=== PATIENT | female | born 1955 | race Hispanic/Latino ===

== ENCOUNTER → 2018-10-24 | Outpatient (REF) ==
[~2018-10-24] MED LIST: EFFEXOR XR150 MG PO; MIRTAZAPINE15 M1 PO; OXYBUTYNIN5 M1 PO; SIMVASTATIN40 MG PO
== END | disposition home or self-care (01) | DRG 642 ==
LOC: LAB 08:08
PROVIDERS: ATTEND Nurse Practitioner Family
DX: E78.5 Hyperlipidemia, unspecified (principal); Z11.4 Encounter for screening for human immunodeficiency virus [HIV]

== ENCOUNTER 2022-02-01 08:25 | Day surgery (SDC) | payer MEDICARE, MEDICAID ==
[~2022-02-01] VITALS: Ht 156.2 cm; Wt 58.1 kg
[~2022-02-01 08:25] MED LIST changes: +BREO ELLIPTA 101 INH; +CVS OMEPRAZOLE20 M1; +FENOFIBRATE145 MG PO; +MONTELUKAST SOD10 MG PO; +PRAVASTATIN SOD20 MG PO; +PROAIR HFA108 MCG/AC; +REMERON SOLTAB15 MG
[2022-02-01 10:25] VITALS: BP 113/56
== END 2022-02-01 10:46 | disposition home or self-care (01) ==
LOC: ENDO 08:25 → ORM 09:20 → ENDO 10:46
PROVIDERS: ATTEND Surgery
PROC: 0DBN8ZX Excision of Sigmoid Colon, Via Natural or Artificial Opening Endoscopic, Diagnostic (ICD-10-PCS; principal; 2022-02-01)
DX: K63.5 Polyp of colon (principal); K64.8 Other hemorrhoids; J45.909 Unspecified asthma, uncomplicated; Z86.010 Personal history of colon polyps

== ENCOUNTER 2022-04-05 09:56 | Day surgery (SDC) | payer MEDICARE, MEDICAID ==
[~2022-04-05] VITALS: Ht 157.5 cm; Wt 55.3 kg
[~2022-04-05 09:56] MED LIST changes: +OMEPRAZOLE DR40 MG PO; +OMEPRAZOLE PO
[2022-04-05] MEDS ORDERED: PERCOCET 5/321 COMBO PO (12:10)
[2022-04-05 13:28] VITALS: BP 126/74
== END 2022-04-05 13:00 | disposition home or self-care (01) ==
LOC: ENDO 09:56 → ORM 13:20
PROVIDERS: ATTEND Surgery
PROC: 06BY3ZC Excision of Hemorrhoidal Plexus, Percutaneous Approach (ICD-10-PCS; principal; 2022-04-05)
PROC: 0DB78ZX Excision of Stomach, Pylorus, Via Natural or Artificial Opening Endoscopic, Diagnostic (ICD-10-PCS; 2022-04-05)
DX: K64.2 Third degree hemorrhoids (principal); K31.7 Polyp of stomach and duodenum; K21.9 Gastro-esophageal reflux disease without esophagitis; J45.909 Unspecified asthma, uncomplicated
CPT/HCPCS: C9290